=== PATIENT | male | born 1970 | race African-American/Black ===

== ENCOUNTER 2019-05-23 11:46 | Emergency (ER) | payer OTHER ==
[2019-05-23 12:15] VITALS: TEMP 98.9; BMI 34.5
--- NOTE | 2019-05-23 12:35 | PDOC ---
History of Present Illness - General Chief Complaint: Chest Pain Stated Complaint: CHEST PAIN Time Seen by Provider: 05/23/19 12:01 - History of Present Illness Initial Comments: 05/23/19 14:23 48 years old with no significant past medical history presents the emergency department with palpitations and mild chest discomfort since yesterday. Patient states he was smoking a hookah last night does not normally smoke felt palpitations and chest discomfort afterwards which persisted till today Currently feeling better His girlfriend son had a recent GI illness she feels similar symptoms to him Past History - Past Medical History Allergies/Adverse Reactions: Allergies Allergy/AdvReac Type Severity Reaction Status Date / Time No Known Allergies Allergy Verified 05/23/19 12:05 Home Medications: Ambulatory Orders NK [No Known Home Medication] 05/23/19 COPD: No - Psycho Social/Smoking Cessation Hx Smoking History: Current some day smoker Have you smoked in the past 12 months: Yes Information on smoking cessation initiated: Yes Hx Alcohol Use: No Drug/Substance Use Hx: No Review of Systems - Review of Systems Comments:: 05/23/19 14:24 ROS: A complete review of 10 out of 10 review of systems is taken and is negative apart from what is previously mentioned below and in the HPI. *Physical Exam - Vital Signs Last Vital Signs Temp Pulse Resp BP Pulse Ox 98.9 F 82 18 119/76 95 05/23/19 11:47 05/23/19 11:47 05/23/19 11:47 05/23/19 11:47 05/23/19 11:47 - Physical Exam 05/23/19 14:24 Vitals: Triage Vital signs reviewed General Appearance: No acute distress, well nourished well developed, Head: Atraumatic, Cardiac: Regular rate and rhythym, no murmurs, no rubs, no gallops, Lungs: Clear to auscultation bilateral, good air movement bilaterally, Abdomen: Soft, non distended, normal bowel sounds, non tender to palpation Extremities: Full range of motion to all extremities, no cyanosis, clubbing, or edema Skin: Warm and dry, no rashes or lesions, no rash, no petechiae Psych: Normal mood, normal affect ED Treatment Course - LABORATORY CBC & Chemistry Diagram: 05/23/19 12:30 05/23/19 12:30 - RADIOLOGY Radiology Studies Ordered: Category Date Time Status CXRPORT [CHEST X-RAY PORTABLE*] [RAD] Stat Radiology 05/23/19 11:52 Completed Medical Decision Making - Medical Decision Making 05/23/19 14:25 48 years old with palpitations mild chest discomfort status post smoking a hookah last night no risk factors heart score 2 EKG demonstrates normal sinus rhythm no ST elevations or T wave inversions except isolated T wave inversion in lead III Labs within normal limits troponin negative atypical chest discomfort may be related to smoking hookah Chest x-ray demonstrates large heart discussed with patient will need to follow- up with PCP Findings, the need for follow-up and strict return instructions discussed with patient. Discharge - Discharge Information Problems reviewed: Yes Clinical Impression/Diagnosis: Palpitations Condition: Good Disposition: HOME - Admission No - Follow up/Referral Referrals: Dominique Mata MD [Primary Care Provider] - - Patient Discharge Instructions Patient Printed Discharge Instructions: DI for Atypical Chest Pain Additional Instructions: Your x-ray demonstrated a large heart new laboratory analysis and EKG were unremarkable please follow-up with your primary care provider this week. Please return to nearest emergency department for any severe worsening symptoms or for any concerns. - Post Discharge Activity
[2019-05-23 12:53] LABS: BASO % 0.4 % (0-2.0); EOS % 1.4 % (0-4.5); HEMATOCRIT 44.5 % (35.4-49); HEMOGLOBIN 14.9 GM/dl (11.7-16.9); LYMPH % 25.7 % (8-40); MCH 29.4 pg (25.7-33.7); MCHC 33.4 g/dl (32.0-35.9); MEAN PLT VOLUME 8.7 fl (7.5-11.1); MONO % 7.4 % (3.8-10.2); NEUT % 65.1 % (42.8-82.8); PLATELET COUNT 201 K/MM3 (134-434); RBC 5.06 M/mm3 (4.00-5.60); RDW 12.9 % (11.9-15.9); WHITE BLOOD COUNT 3.2 K/mm3 (4.0-10.8)
[2019-05-23 13:38] VITALS: BP 134/89; PULSE 80
[2019-05-23 13:43] LABS: ALBUMIN 3.8 g/dl (3.4-5.0); BILIRUBIN,TOTAL 0.4 mg/dL (0.2-1); BLOOD UREA NITROGEN 14.8 mg/dL (7-18); CREATININE 1.4 mg/dL (0.55-1.3); POTASSIUM 4.3 mmol/L (3.5-5.1); TOT PROT 7.8 g/dl (6.4-8.2)
--- NOTE | 2019-05-23 15:14 | EKG ---
Test Reason : Blood Pressure : / mmHG Vent. Rate : 082 BPM Atrial Rate : 082 BPM P-R Int : 170 ms QRS Dur : 092 ms QT Int : 368 ms P-R-T Axes : 050 019 011 degrees QTc Int : 429 ms NORMAL SINUS RHYTHM NORMAL ECG NO PREVIOUS ECGS AVAILABLE Confirmed by Arun Sampson MD ([id number]) on 05/23/2019 3:14:07 PM Referred By: BRYN LERMA Confirmed By:Arun Sampson MD
== END 2019-05-23 14:33 | disposition home or self-care (01) ==
LOC: FER 11:46
DX: R00.2 Palpitations (principal); F17.210 Nicotine dependence, cigarettes, uncomplicated
CPT/HCPCS: 36415; 71045-TC-FY; 80053; 84484; 85025; 93005; 99284-25